=== PATIENT | male | born 2000 | race Caucasian/White ===

== ENCOUNTER 2023-11-05 01:46 | Emergency (ER) | payer SELFPAY ==
[2023-11-05 02:08] VITALS: BP 142/109; PULSE 94; RESP 18; TEMP 36.5; O2SAT 94; BMI 32.5
--- NOTE | 2023-11-05 02:12 | XRR_ITS ---
PROCEDURE INFORMATION: Exam: XR Right Hand Exam date and time: 11/05/2023 2:22 AM Age: 23 years old Clinical indication: Right; Patient HX: C/O RT hand pain with swelling. ; Additional info: Right hand pain swelling TECHNIQUE: Imaging protocol: Radiologic exam of the right hand. Views: 3 or more views. COMPARISON: No relevant prior studies available. FINDINGS: Bones/joints: No evidence of acute fracture or dislocation. No erosive disease. No significant degenerative change. Soft tissues: No radiopaque foreign body or soft tissue gas. Diffuse soft tissue swelling of the index finger. XR/XR hand RT min 3V* [id number] IMPRESSION: No acute bony injury. Diffuse soft tissue swelling of the index finger without visible gas or foreign body.
[2023-11-05 02:37] VITALS: BP 161/94; PULSE 85; RESP 16; O2SAT 96
--- NOTE | 2023-11-05 02:38 | W.ED.EXTPRO ---
HPI - Extremity Problem General: Chief complaint: Extremity Injury, Upper Stated complaint: Right hand injury Time Seen by Provider: 11/05/23 01:54 History of Present Illness: Patient complains of right index finger and hand swelling and painful. Patient injured a couple days ago when he was drunk he was unsure how he did it but has been getting worse since then is red and swollen and painful. Related Data Previous Rx's Medication Instructions Recorded sulfamethoxazole 800 1 tab PO BID #14 tabs 11/05/23 mg-trimethoprim 160 mg tablet (Bactrim DS) Review of Systems General: Reports: 10 or more systems reviewed and unremarkable except in HPI and below Physical Exam Const: COMMON NORMALS: no acute distress, average body habitus, patient oriented x3, no limitations, healthy appearing, alert and well nourished HENMT: COMMON NORMALS: normocephalic, atraumatic, hearing grossly normal bilaterally, external ears normal, Normal external nose present and moist oral mucous membranes HEAD & SCALP: normocephalic and atraumatic NOSE: Normal external nose present EXTERNAL EAR: Yes external ears normal Neck/C-Spine: COMMON NORMALS: no JVD Chest: COMMONS NORMALS: normal inspection of the chest and normal palpation of entire chest wall Resp: COMMON NORMALS: normal respiratory effort, No retractions, No use of accessory muscles and clear to auscultation bilaterally AUSCULTATION: clear to auscultation bilaterally Cardio: COMMON NORMALS: no JVD, regular rate, regular rhythm, S1 normal heart sound present, S2 normal heart sound present, No gallops present (Cardio), No clicks present (Cardio), No murmurs present (Cardio) and No rub (Cardio) RATE: regular rate RHYTHM: regular rhythm HEART SOUNDS: S1 normal heart sound present and S2 normal heart sound present GI: COMMON NORMALS: Normal to inspection, nondistended, normoactive bowel sounds present, Soft to palpation, non-tender, No hepatosplenomegaly present and no masses PALPATION: Yes Soft to palpation and Yes No hepatosplenomegaly present Extremity: NARRATIVE EXTREMITY EXAM: Right pointer finger swollen painful to move erythematous no obvious drainage or fluctuance. Neuro: COMMON NORMALS: patient oriented x3 SENSORIUM/ORIENTATION: Yes alert Course Vital Signs: Vital signs: Vital Signs Temperature 97.7 F 11/05/23 02:08 Pulse Rate 85 11/05/23 02:37 Respiratory Rate 16 11/05/23 02:37 Blood Pressure 161/94 11/05/23 02:37 Pulse Oximetry 96 11/05/23 02:37 MDM - Extremity (Nontraumatic) Medical Decision Making X-rays were read off as negative for acute bony injury, did have diffuse soft tissue swelling, patient was given Bactrim here and discharged with prescription for Bactrim. Patient to follow-up with his PCP within the next 7 days. Medical Records I reviewed the patient's medical records. Lab Data I reviewed the patient's lab results. Radiology Impressions Hand X-Ray 11/05/23 02:12 IMPRESSION: No acute bony injury. Diffuse soft tissue swelling of the index finger without visible gas or foreign body. No radiology studies performed this visit Discharge Plan Discharge Patient Disposition: Home Clinical Impression: Cellulitis of finger of right hand Condition: Stable Prescriptions: New Bactrim DS 800-160 mg tablet 1 tab PO BID Qty: 14 0RF Discharge Orders: Discharge ED (Routine); Ordered 11/05/23 Ordered By: Zach Rodarte Patient Instructions: Cellulitis (ED) Activity Restrictions/Additional Instructions: Your x-ray did not show any acute bony injury, however you do have an infection of your hand. Please take the antibiotics as directed. Patient worsens please feel free to return to the ER or follow-up with your primary care physician within 7 days for further evaluation treatment. Coding Level of Care Code ED Clinical Physician Assistant for Anali Rodriguez
[2023-11-05] MEDS: sulfamethoxazole-trimeth DS 160-800 mg Tablet 1 TAB PO (02:58)
[2023-11-05 03:00] VITALS: BP 156/101; PULSE 91; RESP 16; O2SAT 99
== END 2023-11-05 03:01 | disposition home or self-care (01) ==
PROVIDERS: Emergency Provider Emergency Medicine
DX: L03.011 Cellulitis of right finger (principal)
CPT/HCPCS: 73130; 99283

== ENCOUNTER 2024-08-01 15:36 | Emergency (ER) | payer SELFPAY ==
--- NOTE | 2024-08-01 15:38 | USR_ITS ---
PROCEDURE INFORMATION: Exam: US Scrotum Exam date and time: 08/01/2024 3:46 PM Age: 24 years old Clinical indication: Scrotum pain TECHNIQUE: Imaging protocol: Real-time ultrasound of the scrotum and contents with color Doppler and image documentation. COMPARISON: No relevant prior studies available. FINDINGS: Right testicle: Right testicle measures 4.2 x 2.5 x 3.1 cm. Normal echotexture. Normal vascular flow. Microlithiasis noted incidentally. Left testicle: Left testicle measures 4.5 x 2.1 x 3 1 cm. Normal echotexture. Normal vascular flow. Microlithiasis noted incidentally. Epididymides: Normal. Scrotum/soft tissues: There is a minimal right hydrocele. US/US scrotum [id number] IMPRESSION: 1. Minimal right hydrocele. 2. No testicular torsion. 3. Testicular microlithiasis incidentally noted.
[2024-08-01 16:15] VITALS: BP 119/68; PULSE 86; RESP 16; TEMP 36.7; O2SAT 97
[2024-08-01 18:45] LABS: Bilirubin Urine Negative (Negative); Blood Urine Negative (Negative); Glucose Urine UA Negative (Normal); Ketones Urine Negative (Negative); Leukocyte Esterase Urine Negative (Negative); Nitrate Urine Negative (Negative); Protein Urine Negative (Negative); Specific Gravity, Urine 1.027 (1.005-1.030); Urine Appearance Clear (CLEAR); Urine Color Yellow (Yellow); pH Urine 5.5 (5-7)
[2024-08-01 18:48] LABS: Add Urine Microscopic? YES; Bacteria Urine None Seen /hpf; Hyaline Casts Urine 0.81 /lpf; RBC Urine 0-2 /hpf (0-2); Squamous Epithelial Cell Urine 0-5 /hpf (0-5); WBC Urine 0-5 /hpf (0-5)
--- NOTE | 2024-08-01 20:05 | ED_ITS ---
HPI - Male Genitourinary General: Chief complaint: Urogenital-Male Stated complaint: testiculer pain Time Seen by Provider: 08/01/24 19:46 Source: patient Mode of arrival: ambulatory Limitations: no limitations History of Present Illness: 24-year-old male states been having righ t sided testicle pain that started earlier today. States pain is sharp pain is minimal currently rates it a 3 out of 10 he had some slight discoloration to his testicle as well denies any dysuria denies any penile discharge. Denies any abdominal pain Associated symptoms: Deny dysuria, nausea or vomiting Related Data Previous Rx's ?Medication ?Instructions ?Recorded sulfamethoxazole 800 1 tab PO BID #14 tabs mg-trimethoprim 160 mg tablet (Bactrim DS) Allergies Allergy/AdvReac Type Severity Reaction Status Date / Time No Known Allergies Allergy Verified 08/01/24 16:16 Review of Systems Const: Denies: fever(s), chills, body aches or change in appetite ENMT: Denies: throat pain or dental pain Card: Denies: chest pain Resp: Denies: dyspnea GI: Denies: abdominal pain, nausea, vomiting or diarrhea : Reports: testicular pain; Denies: dysuria Musc: Denies: neck pain or back pain Skin/Breast: Denies: rash Neuro: Denies: headache(s) Physical Exam Const: COMMON NORMALS: no acute distress, patient oriented x3 and healthy appearing HENMT: COMMON NORMALS: normocephalic and atraumatic HEAD & SCALP: normocephalic and atraumatic Eye: COMMON NORMALS: conjunctivae normal CONJUNCTIVA: Yes conjunctivae normal Neck/C-Spine: COMMON NORMALS: supple Chest: COMMONS NORMALS: normal inspection of the chest Resp: COMMON NORMALS: normal respiratory effort GI: COMMON NORMALS: Normal to inspection, nondistended, normoactive bowel sounds present, Soft to palpation, non-tender and no masses PALPATION: Yes Soft to palpation : TESTES: Yes testicular lie normal, No testicular swelling, No testicular tenderness, No testicular mass and No blue dot sign Extremity: COMMON NORMALS: normal to inspection and full ROM Neuro: COMMON NORMALS: patient oriented x3, moves all extremities and no focal motor deficits Psych: COMMON NORMALS: mental status grossly normal, Normal thought process present and cooperative THOUGHT PROCESS: Normal thought process present Skin: COMMON NORMALS: no rashes or lesions noted and no wounds GENERAL SKIN EXAM: no rashes or lesions noted Course Vital Signs: Vital signs: Vital Signs Temperature 98.0 F 08/01/24 16:15 Pulse Rate 86 08/01/24 16:15 Respiratory Rate 16 08/01/24 16:15 Blood Pressure 119/68 08/01/24 16:15 Pulse Oximetry 97 08/01/24 16:15 MDM - Male Medical Decision Making Patient presents here with testicle pain ultrasound showed no signs of epididymitis or torsion exam here is benign he stable for discharge follow-up PCP return if worsening Medical Records I reviewed the patient's medical records. Lab Data I reviewed the patient's lab results. Radiology Impressions Scrotum Ultrasound 08/01/24 15:38 IMPRESSION: 1. Minimal right hydrocele. 2. No testicular torsion. 3. Testicular microlithiasis incidentally noted. Laboratory Results Urine Color Yellow (Yellow) 08/01/24 18:31 Urine Appearance Clear (CLEAR) 08/01/24 18:31 Urine pH 5.5 (5-7) 08/01/24 18:31 Ur Specific [place] 1.027 (1.005-1.030) 08/01/24 18:31 Urine Protein Negative (Negative) 08/01/24 18:31 Urine Glucose (UA) Negative (Normal) 08/01/24 18:31 Urine Ketones Negative (Negative) 08/01/24 18:31 Urine Blood Negative (Negative) 08/01/24 18:31 Urine Nitrate Negative (Negative) 08/01/24 18:31 Urine Bilirubin Negative (Negative) 08/01/24 18:31 Urine Urobilinogen 1.0 mg/dL (Negative) 08/01/24 18:31 Ur Leukocyte Esterase Negative (Negative) 08/01/24 18:31 Urine RBC 0-2 /hpf (0-2) 08/01/24 18:31 Urine WBC 0-5 /hpf (0-5) 08/01/24 18:31 Ur Squamous Epith Cells 0-5 /hpf (0-5) 08/01/24 18:31 Amorphous Sediment Not Reportable 08/01/24 18:31 Urine Bacteria None seen /hpf (NONE) 08/01/24 18:31 Hyaline Casts 0.81 /lpf 08/01/24 18:31 All radiology interpretation(s) finalized by discharge Discharge Plan Discharge Patient Disposition: Home Clinical Impression: Pain in testicle Condition: Stable Prescriptions: No Action Bactrim DS 800-160 mg tablet 1 tab PO BID Qty: 14 0RF Discharge Orders: Discharge ED (Routine); Ordered 08/01/24 Ordered By: Ruperto Espitia Discharge Diet: Advance as tolerated Discharge Activity: Resume usual activity Patient Instructions: Testicle Pain (ED) Print Language: Lithuanian Coding Level of Care Code ED Optical Effects Camera Operator for Anali Rodriguez
[2024-08-01 20:23] VITALS: BP 120/75; PULSE 75; O2SAT 98
--- NOTE | 2024-08-03 09:32 | DCPLANNER ---
faxed referral to [facility]
== END 2024-08-01 20:23 | disposition home or self-care (01) ==
PROVIDERS: Physician Assistant; Emergency Provider Emergency Medicine
DX: N50.811 Right testicular pain (principal)
CPT/HCPCS: 76870; 81001; 99284